=== PATIENT | female | born 1980 | race Caucasian/White ===

== ENCOUNTER 2017-05-29 11:37 | Inpatient (IN) | payer MEDICAID ==
[~2017-05-29] VITALS: Ht 162.6 cm; Wt 60.9 kg
[2017-05-29 11:45] VITALS: Ht 162.6 cm; Wt 60.9 kg
[2017-05-29 12:22] LABS: BASOPHIL % 0.3 % (0-2); PLATELET COUNT 228 x10^3mcL (130-400); RED CELL DISTRIBUTION WIDTH 12.6 % (11.5-14.5)
[2017-05-29 12:36] LABS: CALCIUM 8.3 mg/dL (8.5-10.1); CARBON DIOXIDE 24.9 mmol/L (21-32); CHLORIDE SERUM 112 mmol/L (98-107); CREATININE SERUM 0.7 mg/dL (0.6-1.0); GFR1 > 60 mL/min; GLUCOSE SERUM 116 mg/dL (74-106); POTASSIUM SERUM 4.7 mmol/L (3.5-5.1); SODIUM SERUM 143 mmol/L (136-145)
[2017-05-29 12:40] LABS: ALKALINE PHOSPHATASE 72 U/L (46-116); ALT/SGPT 17 U/L (14-59); AST/SGOT 15 U/L (15-37); BILIRUBIN TOTAL 0.69 mg/dL (0.20-1.00); CHOLESTEROL 135 mg/dL (<200); CHOLESTEROL/HDL RATIO 2.9; HDL CHOLESTEROL 47 mg/dL (40-60); LIPASE 169 IU/L (73-393); TOTAL PROTEIN, SERUM 6.6 g/dL (6.4-8.2); TRIGLYCERIDES 113 mg/dL (<150)
[2017-05-29 12:41] LABS: ALBUMIN 2.9 g/dL (3.4-5.0)
[2017-05-29 12:49] LABS: T3 TOTAL 1.22 ng/mL
[2017-05-29 12:52] LABS: FREE T4 1.22 ng/dL (0.76-1.46); FREE THYROXINE INDEX 3.2 ug/dL (1.4-4.5); T4(THYROXINE) 10.5 ug/dL (4.7-13.3)
[2017-05-29 13:35] LABS: UA SPECIFIC GRAVITY <=1.005 (1.005-1.035); microscopic required? YES; urine erythrocyte TRACE (NEGATIVE)
[2017-05-29 13:42] LABS: AMPHETAMINE QUAL UR NONE DETECTED (NEG <=1000)
[2017-05-29 14:53] VITALS: BP 117/76
[2017-05-29 15:42] LABS: MAGNESIUM 1.9 mg/dL (1.8-2.4)
[2017-05-29 17:46] VITALS: BP 102/61
[2017-05-29 21:15] VITALS: BP 103/61
[2017-05-30 05:12] LABS: BASOPHIL % 0.3 % (0-2); PLATELET COUNT 206 x10^3mcL (130-400); RED CELL DISTRIBUTION WIDTH 12.7 % (11.5-14.5)
[2017-05-30 05:25] VITALS: BP 101/62
[2017-05-30 05:30] LABS: CALCIUM 8.6 mg/dL (8.5-10.1); CARBON DIOXIDE 23.1 mmol/L (21-32); CHLORIDE SERUM 109 mmol/L (98-107); CREATININE SERUM 0.7 mg/dL (0.6-1.0); GFR1 > 60 mL/min; GLUCOSE SERUM 107 mg/dL (74-106); POTASSIUM SERUM 4.1 mmol/L (3.5-5.1); SODIUM SERUM 139 mmol/L (136-145)
[2017-05-30 13:21] VITALS: BP 100/60
[2017-05-30 16:25] VITALS: BP 112/66
[2017-05-30 20:30] VITALS: BP 102/68
[2017-05-31 06:19] VITALS: BP 100/70
[2017-05-31 06:34] LABS: BASOPHIL % 0.4 % (0-2); PLATELET COUNT 211 x10^3mcL (130-400); RED CELL DISTRIBUTION WIDTH 12.8 % (11.5-14.5)
[2017-05-31 06:49] LABS: CALCIUM 8.5 mg/dL (8.5-10.1); CARBON DIOXIDE 23.6 mmol/L (21-32); CHLORIDE SERUM 108 mmol/L (98-107); CREATININE SERUM 0.7 mg/dL (0.6-1.0); GFR1 > 60 mL/min; GLUCOSE SERUM 103 mg/dL (74-106); MAGNESIUM 1.6 mg/dL (1.8-2.4); PHOSPHOROUS 4.1 mg/dL (2.5-4.9); POTASSIUM SERUM 4.2 mmol/L (3.5-5.1); SODIUM SERUM 139 mmol/L (136-145)
[2017-05-31] MEDS ORDERED: METOPROLOL TART25 M1 PO (08:40)
[2017-05-31 08:43] VITALS: BP 100/70
[2017-05-31 09:07] VITALS: BP 104/56
[2017-05-31] MEDS ORDERED: ZOLOFT25 MG PO (09:26)
== END 2017-05-31 14:05 | disposition home or self-care (01) | DRG 201 ==
LOC: ED 11:37 → DU 13:48
PROVIDERS: Family Medicine; Specialist
DX: I47.1 Supraventricular tachycardia (principal); I24.9 Acute ischemic heart disease, unspecified; E44.0 Moderate protein-calorie malnutrition; E83.42 Hypomagnesemia; F41.1 Generalized anxiety disorder; K21.9 Gastro-esophageal reflux disease without esophagitis; N39.0 Urinary tract infection, site not specified; M94.0 Chondrocostal junction syndrome [Tietze]; Z68.23 Body mass index [BMI] 23.0-23.9, adult
CPT/HCPCS: 83880; 84439; G0480; J0696; J1644; J7030; Q0092

== ENCOUNTER 2018-12-13 09:30 | Emergency (ER) | payer MEDICAID ==
[~2018-12-13] VITALS: Ht 162.6 cm; Wt 68.5 kg
[~2018-12-13 09:30] MED LIST: METOPROLOL TART25 M1 PO; ZOLOFT25 MG PO
[2018-12-13 09:33] VITALS: Ht 162.6 cm; Wt 68.5 kg
[2018-12-13 11:25] VITALS: BP 114/72
== END 2018-12-13 11:25 | disposition home or self-care (01) ==
LOC: ED 09:30
DX: J20.8 Acute bronchitis due to other specified organisms (principal); F41.9 Anxiety disorder, unspecified; R56.9 Unspecified convulsions
CPT/HCPCS: Q0092

== ENCOUNTER 2020-03-27 11:52 | Emergency (ER) | payer MEDICAID ==
[~2020-03-27] VITALS: Ht 165.1 cm; Wt 76.7 kg
[2020-03-27 11:58] VITALS: Ht 165.1 cm; Wt 76.7 kg
[2020-03-27 15:33] LABS: BASOPHIL % 0.3 % (0.2-1.3); PLATELET COUNT 292 x10^3mcL (179-408)
[2020-03-27 15:41] LABS: RED CELL DISTRIBUTION WIDTH 15.1 % (12.3-17.7)
[2020-03-27 16:00] LABS: CALCIUM 8.9 mg/dL (8.5-10.1); CARBON DIOXIDE 26.1 mmol/L (21-32); CHLORIDE SERUM 102 mmol/L (98-107); CREATININE SERUM 0.7 mg/dL (0.6-1.0); GFR1 > 60 mL/min; GLUCOSE SERUM 96 mg/dL (74-106); SODIUM SERUM 136 mmol/L (136-145)
[2020-03-27 16:07] LABS: ALBUMIN 3.4 g/dL (3.4-5.0); ALKALINE PHOSPHATASE 128 U/L (46-116); ALT/SGPT 24 U/L (14-59); AST/SGOT 15 U/L (15-37); BILIRUBIN TOTAL 0.3 mg/dL (0.20-1.00); TOTAL PROTEIN, SERUM 7.4 g/dL (6.4-8.2)
[2020-03-27 16:42] VITALS: BP 115/68
== END 2020-03-27 16:42 | disposition home or self-care (01) ==
LOC: ED 11:52
DX: R07.89 Other chest pain (principal)
CPT/HCPCS: 85378; Q0162